=== PATIENT | female | born 1980 | race Hispanic/Latino ===

== ENCOUNTER → 2023-05-05 | Outpatient (CLI) | payer OTHER | END | disposition home or self-care (01) | LOC: RAH 08:56 | PROVIDERS: ATTEND Internal Medicine Cardiovascular Disease | DX: I70.1 Atherosclerosis of renal artery (principal) | CPT/HCPCS: 76770; 93975 ==

== ENCOUNTER → 2023-05-14 | Outpatient (CLI) | payer OTHER | END | disposition home or self-care (01) | LOC: EDUNIT# 13:00 → RAH 13:29 | PROVIDERS: ATTEND Internal Medicine Cardiovascular Disease | DX: I51.7 Cardiomegaly (principal); R01.1 Cardiac murmur, unspecified | CPT/HCPCS: 93306 ==

== ENCOUNTER → 2023-05-25 | Outpatient (CLI) | payer OTHER ==
[2023-05-25 16:31] LABS: CREATININE 0.6 mg/dL (0.5-1.5)
== END | disposition home or self-care (01) ==
LOC: LAB 13:19
PROVIDERS: ATTEND Internal Medicine Cardiovascular Disease
DX: I70.1 Atherosclerosis of renal artery (principal); I10 Essential (primary) hypertension
CPT/HCPCS: 36415; 82565; 84520

== ENCOUNTER 2025-02-06 00:31 | Emergency (ER) | payer SELFPAY ==
[~2025-02-06] VITALS: Ht 165.1 cm; Wt 101.6 kg
[2025-02-06 01:10] LABS: BASOPHILS # (AUTO) 0.01 K/uL (0.00-0.20); BASOPHILS % (AUTO) 0.2 % (0.0-5.0); EOSINOPHILS # (AUTO) 0.04 K/uL (0.00-0.70); EOSINOPHILS % (AUTO) 0.9 % (0.0-8.0); HEMATOCRIT 35.5 % (36-48); IMMATURE GRANULOCYTE ABSOLUTE 0.01 K/uL (0-1); LYMPHOCYTES # (AUTO) 1.1 K/uL (1.0-4.8); LYMPHOCYTES % (AUTO) 23.5 % (21.0-51.0); MEAN CORPUSCULAR HEMOGLOBIN 28.9 pg (27.0-33.0); MEAN CORPUSCULAR HGB CONC 33.8 g/dL (32.0-36.0); MEAN CORPUSCULAR VOLUME 85.5 fL (79-99); MONOCYTES # (AUTO) 0.5 K/uL (0.1-1.0); MONOCYTES % (AUTO) 10.7 % (3.0-13.0); NEUTROPHILS # (AUTO) 2.9 K/uL (1.8-7.7); NEUTROPHILS % (AUTO) 64.5 % (40.0-77.0); PLATELET COUNT (AUTO) 182 K/uL (130-400); RED BLOOD CELL COUNT(AUTO) 4.15 MIL/uL (4.00-5.50); RED CELL DISTRIBUTION WIDTH 13.3 % (11.0-15.5); WHITE BLOOD COUNT (AUTO) 4.6 K/uL (4.8-10.8)
[2025-02-06 01:22] LABS: CREATININE 0.6 mg/dL (0.5-1.0); POTASSIUM 3.8 mmol/L (3.5-5.1)
[2025-02-06 01:27] LABS: MAGNESIUM 1.6 mg/dL (1.80-2.40)
[2025-02-06] MEDS: acetaMINOPHEN 325 MG TAB PO ONE (01:30)
[2025-02-06 01:37] LABS: B-TYPE NATRIURETIC PEPTIDE 21 pg/mL (0-100)
--- NOTE | 2025-02-06 01:59 | ERN ---
General Chief Complaint: Hypertension Stated Complaint: C/O HIGH B/P, PAIN TO THE BACK OF HEAD, CHEST PRES Time Seen by MD: 00:33 Time Seen by Midlevel: 00:33 Source: patient History of Present Illness Initial Comments Patient is a 44-year-old female with a past medical history of type 2 diabetes, hypertension, and hyperlipidemia presenting to the emergency department for evaluation of elevated blood pressure reading at home. Approximately 2 hours prior to arrival she developed a headache and chest pressure so she denies to check her blood pressure and it was 220 systolic. She called her pellet machine operator who advised to report to the emergency department for further evaluation. On arrival she does report a slight headache and chest pressure but denies any other symptoms. She was on three different antihypertensives. Medications include amlodipine, losartan, and labetalol. She does report taking her medication as prescribed today. Allergies: Coded Allergies: No Known Allergies (Unverified Allergy, Unknown, 02/06/25) Past Medical History Past Medical History: Diabetes-Type II, High Cholesterol, Hypertension Past Surgical History: Unknown Female( History) LMP: Jan 09, 2025 ROS Dictation CONSTITUTIONAL: Negative except for HPI HEAD/FACE: Negative except for HPI EENT: Negative except for HPI RESPIRATORY: Negative except for HPI GASTROINTESTINAL/ABDOMINAL: Negative except for HPI GENITOURINARY: Negative except for HPI MUSCULOSKELETAL: Negative except for HPI INTEGUMENTARY: Negative except for HPI NEUROLOGICAL/PSYCH: Negative except for HPI HEMATOLOGIC/LYMPHATIC: Negative except for HPI All Systems Negative, Except as noted above. 13 point review of systems assessed and all negative except for above. Physical Exam Physical Exam Dictation Vital Signs reviewed General Appearance: Alert, oriented x 3, no acute distress, well developed, nourished. Head and Face: non-traumatic. Eyes: PERRL, pink conjunctivas, eyelid no trauma, anterior chamber with arcus senilis. Ears: Pinnas intact and no signs of trauma or erythema ear canals clear and no discharge TM no erythema Nose: No discharge, no bleeding. Oropharynx: Mouth normal, tongue pink, pharynx clear,no erythema, tonsils no exudates, no abscesses noted, mucous membrane moist Neck: Supple, non-tender, no thyromegaly, no masses, no JVD, no bruits Breast:Deferred Chest:No tenderness, no crepitus, no paradoxical movement, no retractions Lungs:Clear, well-ventilated, symmetric, no rales, no wheezing, no rhonchi, no stridor, good breath sounds bilaterally Heart: Regular rate, regular rhythm, no murmur, no gallops Vascular: no peripheral edema, Abdomen: Soft, positive bowel sounds, nondistended, no guarding, nontender, no rebound, no masses no hepatomegaly, no splenomegaly, no Sam's sign, no hernias. Rectal: Deferred Genital: Deferred Neurological: Normal speech, motor function intact, sensory function intact Musculoskeletal: Neck nontender, full range of motion, back nontender, full range of motion, Extremities: nontender, full range of motion Skin: Color pink, dry, no turgor, no rash, no lacerations, no abrasions, no contusions. Lymphatic: Deferred Results Laboratory and Microbiology Lab and Micro Result Laboratory Tests Test 02/06/25 01:07 White Blood Count 4.6 K/uL (4.8-10.8) L Red Blood Count 4.15 MIL/uL (4.00-5.50) Hemoglobin 12.0 g/dL (12.0-16.0) Hematocrit 35.5 % (36-48) L Mean Corpuscular Volume 85.5 fL (79-99) Mean Corpuscular Hemoglobin 28.9 pg (27.0-33.0) Mean Corpuscular Hemoglobin Concent 33.8 g/dL (32.0-36.0) Red Cell Distribution Width 13.3 % (11.0-15.5) Platelet Count 182 K/uL (130-400) Mean Platelet Volume 10.7 fL (7.5-10.5) H Immature Granulocyte % (Auto) 0.2 % (0-1) Neutrophils (%) (Auto) 64.5 % (40.0-77.0) Lymphocytes (%) (Auto) 23.5 % (21.0-51.0) Monocytes (%) (Auto) 10.7 % (3.0-13.0) Eosinophils (%) (Auto) 0.9 % (0.0-8.0) Basophils (%) (Auto) 0.2 % (0.0-5.0) Neutrophils # (Auto) 2.9 K/uL (1.8-7.7) Lymphocytes # (Auto) 1.1 K/uL (1.0-4.8) Monocytes # (Auto) 0.5 K/uL (0.1-1.0) Eosinophils # (Auto) 0.04 K/uL (0.00-0.70) Basophils # (Auto) 0.01 K/uL (0.00-0.20) Absolute Immature Granulocyte (auto 0.01 K/uL (0-1) Nucleated Red Blood Cells 0.0 % (0.0-0.19) Sodium Level 139 mmol/L (136-145) Potassium Level 3.8 mmol/L (3.5-5.1) Chloride Level 101 mmol/L (101-111) Carbon Dioxide Level 31 mmol/L (21-32) Blood Urea Nitrogen 14 mg/dL (7-18) Creatinine 0.6 mg/dL (0.5-1.0) Glomerular Filtration Rate Calc 113 mL/min (>90) Random Glucose 133 mg/dL (70-105) H Total Calcium 9.3 mg/dL (8.5-10.1) Magnesium Level 1.60 mg/dL (1.80-2.40) L Total Creatine Kinase 123 U/L (21-232) Troponin I High Sensitivity 6 ng/L (4-50) B-Type Natriuretic Peptide 21 pg/mL (0-100) Serum Test, Qualitative NEGATIVE (NEGATIVE) Labs Reviewed?: Yes MDM MDM: Patient is a 44-year-old female with a past medical history of type 2 diabetes, hypertension, and hyperlipidemia presenting to the emergency department for evaluation of elevated blood pressure reading at home. Approximately 2 hours prior to arrival she developed a headache and chest pressure so she denies to check her blood pressure and it was 220 systolic. She called her pellet machine operator who advised to report to the emergency department for further evaluation. On arrival she does report a slight headache and chest pressure but denies any other symptoms. She was on three different antihypertensives. Medications include amlodipine, losartan, and labetalol. She does report taking her medication as prescribed today. On physical examination patient is in no acute distress. Initial vital signs reveal a blood pressure of 168/100. Cardiac workup was initiated. The patient was transported to her room and her blood pressure was repeated. Blood pressure improved to 142/77. She was given Tylenol for headache. Her initial EKG shows normal sinus rhythm with a ventricular rate of84 beats per minute. No ST elevations or bundle branch blocks were noted. Her CBC and chemistries unremarkable. Her troponin is negative. Chest x-ray shows no acute cardiopulmonary abnormalities. Differential diagnosis: Elevated blood pressure reading, hypertensive emergency, hypertensive urgency, ACS There are no social concerns with this patient. Prescription drug management Prescriptions will include: None Medical management and examination interpretation discussions were had by me with other qualified healthcare professionals as indicated for the patient's care. ED Course Orders Procedure Category Date Status Time 12 Lead Ekg Tracing- EKG 02/06/25 Logged Technical 00:39 B-Type Natriuretic LAB 02/06/25 Complete Peptide 00:39 Basic Metabolic Panel LAB 02/06/25 Complete 00:39 Cbc With Differential LAB 02/06/25 Complete 00:39 Creatine Kinase, Total LAB 02/06/25 Complete 00:39 Troponin I High LAB 02/06/25 Complete Sensitivity 00:39 Testing, LAB 02/06/25 Complete Serum Hcg 00:39 Magnesium LAB 02/06/25 Complete 00:39 Chest 1vw RAD 02/06/25 Logged 00:39 Acetaminophen 325 Tab PHA 02/06/25 Complete (Tylenol 325mg Tab 01:30 Current Medications Medications (Trade) Dose Ordered Sig/Arturo Route PRN Reason Start Time Stop Time Status Last Admin Dose Admin Acetaminophen (TYLenol 325MG TAB) 650 mg ONCE ONCE PO 02/06/25 01:30 02/06/25 01:31 DC 02/06/25 01:30 Vital Signs Date Time Temp Pulse Resp B/P (MAP) Pulse Ox O2 Delivery O2 Flow Rate FiO2 02/06/25 01:02 98.1 84 16 142/77 97 Room Air* 0 21 02/06/25 00:47 98.1 88 16 169/87 97 Room Air* 0 21 02/06/25 00:33 99.3 85 20 168/100 99 Room Air HEART Score Response (Comments) Value History: Low suspicion (0) 0 EKG: Normal 0 Age: 45-65yrs (+1) 1 Risk Factors: 1-2 risk factors (+1) 1 Initial Troponin: Normal limit (0) 0 HEART Score Risk: Low Risk for MACE (1-3) Total 2 DX & DISP Disposition: Discharge Departure Impression: Primary Impression: Elevated blood pressure reading Condition: Stable Referrals: EUGENIA ANDERSON (PCP) I have reviewed the case, and I agree with, Diagnosis and Plan I performed the substantive portion of the visit. I have reviewed and personally made and approve the management plan that is documented in the note by myself or the JACQUELINE. I acknowledge for responsibility for the patient's management plan. JAYRO CEVALLOS Feb 06, 2025 01:58
[2025-02-06 02:10] VITALS: BP 113/56; PULSE 78; RESP 16; TEMP 98.2; O2SAT 95
--- NOTE | 2025-02-06 08:22 | EKG ---
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
--- NOTE | 2025-02-06 09:12 | HMCIMG ---
CHEST 1VW HISTORY: Chest pain COMPARISON: None FINDINGS: A frontal projection of the chest was obtained. No acute pulmonary infiltrates is seen. The heart is normal in size. Prominent interstitial markings are seen. Degenerative changes are seen. IMPRESSION: 1. No acute pulmonary infiltrate is seen.
== END 2025-02-06 02:29 | disposition home or self-care (01) ==
LOC: EDH 00:31
DX: I10 Essential (primary) hypertension (principal); E11.9 Type 2 diabetes mellitus without complications; E78.00 Pure hypercholesterolemia, unspecified; I25.2 Old myocardial infarction
CPT/HCPCS: 36415; 71045; 80048; 82550; 83735; 83880; 84484; 84703; 85025; 93005; 99285